=== PATIENT | male | born 1990 | race Caucasian/White ===

== ENCOUNTER 2017-09-19 13:49 | Emergency (ER) | payer OTHER ==
[2017-09-19 13:53] VITALS: BP 177/78; PULSE 121; TEMP 36.9; O2SAT 99; Ht 177.8 cm
[2017-09-19] MEDS ORDERED: IBUPROFEN 600 MG TAB PO STA (14:13)
[2017-09-19] MEDS ORDERED: DIPHTHERIA/TETANUS/PERTUSSIS 0.5 ML SYR/VIAL IM. ONE (14:15)
[2017-09-19] MEDS ORDERED: LIDO/EPINEPHRINE/SOD BICARB 20 ML VIAL INFIL ONE (14:15)
--- NOTE | 2017-09-19 14:30 | DIAGNOSTIC IMAGING REPORT ---
R TIBIA/FIBULA 2 VIEWS ROUTINE CLINICAL HISTORY: RIGHT, LACERATION FROM AX COMPARISON: None. DISCUSSION: The bones and joint spaces appear intact. There is no evidence of fracture, dislocation or bony disease. There is no evidence for soft tissue swelling. IMPRESSION: Negative study. The above report was generated using voice recognition software. It may contain grammatical, syntax or spelling errors. Electronically signed by: Farhad Iglesias M.D. 09/19/2017 2:28 PM Dictated Date/Time: 09/19/2017 2:26 PM
[2017-09-19] MEDS ORDERED: NORCO 5/325MG HOME PACK PO ONE (15:45)
--- NOTE | 2017-09-19 15:47 | EMERGENCY ROOM VISIT NOTE ---
ED Visit Note First contact with patient: 13:55 CHIEF COMPLAINT: Right lower leg laceration 1 hour ago HISTORY OF PRESENT ILLNESS: Patient is an otherwise healthy 27-year-old male who presents emergency department for evaluation of a laceration to the right lower leg that occurred 1 hour ago. He was using a hatchet to cut wood, when he slipped and accidentally hit the anterior right brown. Family members covered the area with a towel and duct tape. Bleeding has been controlled. Patient denies any pain. He was able to bear weight, but states that the bleeding increased with weightbearing. He denies any numbness, tingling or weakness into the foot or the ankle. REVIEW OF SYSTEMS: Review of systems as per HPI. All other systems reviewed were negative. At least 6 systems reviewed. PMH: Electronic medical records are reviewed and summarized as above/below. See Problem List. He is unsure of his last tetanus vaccination. SOCIAL HISTORY: Patient living at home with his . He does not smoke. Employed as a delivery truck driver heavy. PHYSICAL EXAM: Vital Signs: Reviewed Nurse's notes. There is a 12 cm long V- shaped laceration on the anterior right lower leg, lateral to the anterior tibial spine. The edges are gaping apart. There is no foreign material in the wound and it looks clean. There is no active bleeding. When the flap was reflected, the base of the wound was palpated thoroughly, and laceration did not extend to the tibial surface. There was a very small injury to the fascial layer. No significant muscle involvement appreciated. EMERGENCY DEPARTMENT COURSE: The patient was medicated with ibuprofen. His tetanus was updated. X-rays of the right tib-fib were obtained. Using sterile technique, the wound was prepped with Betadine and draped sterilely. Wound was anesthetized with 1% buffered lidocaine with epinephrine. When adequate anesthesia was obtained, the wound was re-scrubbed with Betadine and irrigated copiously using normal saline solution. Wound was thoroughly inspected, there is no evidence for foreign body. Laceration did not extend into the bone. Subcutaneous layer was reapproximated using multiple 4-0 Vicryl sutures, then skin was closed using 22, 4-0 nylon sutures. Wound was cleansed and dressed with antibiotic ointment and a bandage. Patient will be placed on crutches to assist with weightbearing. Verbal and written wound care measures were outlined at length with the patient. He was given a [place] home pack. There is no evidence of nerve, vascular or tendinous injury. No bony involvement. Medication reconciliation: I attest that I have personally reviewed the patient' s current medication list. Blood pressure screening : Patient was found to have normal blood pressure on screening and does not require follow-up. R TIBIA/FIBULA 2 VIEWS ROUTINE CLINICAL HISTORY: RIGHT, LACERATION FROM AX COMPARISON: None. DISCUSSION: The bones and joint spaces appear intact. There is no evidence of fracture, dislocation or bony disease. There is no evidence for soft tissue swelling. IMPRESSION: Negative study. Problem List Surgical Problems: (1) History of appendectomy Status: Resolved Current/Historical Medications No Active Prescriptions or Reported Meds Allergies Coded Allergies: No Known Allergies (Unverified , 09/19/17) Vital Signs Date Time Temp Pulse Resp B/P (MAP) Pulse Ox O2 Delivery O2 Flow Rate FiO2 09/19/17 13:53 36.9 121 18 177/78 99 Room Air Medications Administered Medications (Trade) Dose Ordered Sig/Kathy Route Start Time Stop Time Status Last Admin Dose Admin Diphtheria/ Pertussis/Tetanus Vacc (Adacel Inj) 0.5 ml ONCE ONCE IM. 09/19/17 14:15 09/19/17 14:16 DC 09/19/17 14:28 0.5 ML Ibuprofen (Motrin Tab) 600 mg NOW STAT PO 09/19/17 14:13 09/19/17 14:15 DC 09/19/17 14:27 600 MG Acetaminophen/ Hydrocodone Bitart ([place] 5/325mg Home Pack) 1 homepack UD ONCE PO 09/19/17 15:45 09/19/17 15:46 DC 09/19/17 15:50 1 HOMEPACK Departure Information Impression Primary Impression: Leg laceration Prescriptions No Active Prescriptions or Reported Meds Referrals No Doctor, Assigned (PCP) Patient Instructions My [facility] Additional Instructions Keep wound clean and dry. Do not allow any crusting or dried blood to accumulate on sutures. Clean gently with mild soap and water daily. Do not immerse in standing water. Use an antibiotic ointment for 3-4 days, then let wound dry. Suture removal in 14 days. Return sooner for any signs of infection (increasing redness, swelling, drainage). Ice and elevate for swelling and pain. Use the crutches as instructed. Ibuprofen 600 mg and Tylenol 1000 mg every 6 hrs for pain. Hydrocodone/Acetaminophen ([place]) 5/325 mg: Take 1-2 pills every four hours for breakthrough pain. Avoid alcohol, operating machinery or dangerous equipment, working on ladders or roofs, DRIVING, or situations where being under the influence may be dangerous. It is recommended to use an [id number] stool softener such as Colace, 100mg twice daily while taking this medication to avoid constipation. Problem Qualifiers Primary Impression: Leg laceration Encounter type: initial encounter Laterality: right Qualified Codes: S81.811A - Laceration without foreign body, right lower leg, initial encounter
== END 2017-09-19 15:56 | disposition home or self-care (01) ==
LOC: C.EDB 13:52 → C.EDD 15:56
DX: S81.811A Laceration without foreign body, right lower leg, initial encounter (principal); W22.8XXA Striking against or struck by other objects, initial encounter; Y93.89 Activity, other specified; Z23 Encounter for immunization